=== PATIENT | female | born 1985 | race Caucasian/White ===

== ENCOUNTER 2018-09-26 17:46 | Emergency (ER) | payer BC ==
[2018-09-26 18:18] VITALS: BP 102/69; PULSE 112; TEMP 98.7; BMI 24.5
[2018-09-26] MEDS ORDERED: SODIUM CHLORIDE 1,000 ML IV STA ×2 (18:30→18:58)
[2018-09-26] MEDS ORDERED: METOCLOPRAMIDE HCL INJECTION 10 MG/2 ML VIAL IVPUSH ONE (18:52)
[2018-09-26] MEDS ORDERED: METOCLOPRAMIDE HCL INJECTION 10 MG/2 ML VIAL ONE (18:52)
--- NOTE | 2018-09-26 19:09 | PDOC ---
Documentation entered by Christophe Lindsey SCRIBE, acting as scribe for Rod Alexander MD. Rod Alexander MD: This documentation has been prepared by the Rosalia cano Xhesika, SCRIBE, under my direction and personally reviewed by me in its entirety. I confirm that the documentation accurately reflects all work, treatment, procedures, and medical decision making performed by me. History of Present Illness - General Chief Complaint: Nausea/Vomiting Stated Complaint: NAUSEA Time Seen by Provider: 09/26/18 18:05 History Source: Patient Exam Limitations: No Limitations - History of Present Illness Initial Comments: 09/26/18 18:54 The patient is a 32 year old female, 18 weeks , , with no significant past medical history who presents to the emergency department with nausea, vomiting and diarrhea since last night. The patient states she has been vomiting and having loose stools every hour since 8pm last night with the most recent episode at 3pm today. Pt denies abdominal pain. Denies F/C. Denies any vaginal discharge/bleeding/dysuria. Denies any similar episodes with previous or this one. 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 The patient states she called her pharmaceutical worker, Dr. Garibay, and was told to come to the ED for fluids. The patient denies any recent travels. The patient denies chest pain, shortness of breath, headache or dizziness. The patient denies fever, chills, or constipation. The patient denies dysuria, frequency, urgency or hematuria. Allergies: NKDA Past surgical history: None reported. Social History: None reported HANDYMAN: Dr. Garibay [facility] Past History - Past Medical History Allergies/Adverse Reactions: Allergies Allergy/AdvReac Type Severity Reaction Status Date / Time No Known Allergies Allergy Verified 09/26/18 17:47 Home Medications: Ambulatory Orders NK [No Known Home Medication] 09/26/18 COPD: No - Immunization History Immunization Up to Date: Yes - Suicide/Smoking/Psychosocial Hx Smoking History: Never smoked Have you smoked in the past 12 months: No Hx Alcohol Use: No Drug/Substance Use Hx: No Review of Systems - Review of Systems Comments:: 09/26/18 18:55 "GENERAL/CONSTITUTIONAL: No fever or chills. No weakness. HEAD, EYES, EARS, NOSE AND THROAT: No change in vision. No ear pain or discharge. No sore throat. CARDIOVASCULAR: No chest pain, no shortness of breath, no loss of consciousness RESPIRATORY: No cough, wheezing, or hemoptysis. GASTROINTESTINAL: (+) nausea, vomiting, diarrhea. No constipation. GENITOURINARY: No dysuria, frequency, or change in urination. MUSCULOSKELETAL: No joint or muscle swelling or pain. No neck or back pain. SKIN: No rash NEUROLOGIC: No vertigo, no change in strength/sensation. ENDOCRINE: No increased thirst. No abnormal weight change. HEMATOLOGIC/LYMPHATIC: No anemia, easy bleeding, or history of blood clots. ALLERGIC/IMMUNOLOGIC: No hives or skin allergy. *Physical Exam - Vital Signs Last Vital Signs Temp Pulse Resp BP Pulse Ox 98.7 F 112 H 20 102/69 97 09/26/18 17:47 09/26/18 17:47 09/26/18 17:47 09/26/18 17:47 09/26/18 17:47 - Physical Exam Comments: 09/26/18 18:55 "GENERAL: Awake, alert, and fully oriented, in no acute distress. HEAD: No signs of trauma EYES: PERRLA, EOMI, sclera anicteric, conjunctiva clear ENT: Auricles normal inspection, hearing grossly normal, nares patent, oropharynx clear without exudates. Moist mucosa NECK: Nontender, no stepoffs, Normal ROM, supple, no lymphadenopathy, JVD, or masses LUNGS: Breath sounds equal, clear to auscultation bilaterally. No wheezes, and no crackles HEART: Regular rate and rhythm, normal S1 and S2, no murmurs, rubs or gallops ABDOMEN: Soft, nontender, normoactive bowel sounds. No guarding, no rebound. No masses EXTREMITIES: Normal range of motion, no edema. No clubbing or cyanosis. No cords, erythema, or tenderness NEUROLOGICAL: Cranial nerves II through XII intact. 5/5 strength and sensation in all extremities, Normal speech, normal gait, normal cerebellar function SKIN: Warm, Dry, normal turgor, no rashes or lesions noted. ED Treatment Course - LABORATORY CBC & Chemistry Diagram: 09/26/18 18:31 09/26/18 18:48 Medical Decision Making - Medical Decision Making 09/26/18 18:55 32 F @ 18 weeks , presenting with N+V+D. Likely viral gastroenteritis. Pt has never had hyperemesis with either . Pt with benign abdomen, making raina/appy/colitis/diverticulitis unlikely. - Labs, UA - IVF - PO challenge Pt signed out to oncoming attending at 7pm, pending labs and re-evaluation. *DC/Admit/Observation/Transfer Diagnosis at time of Disposition: Gastroenteritis - Discharge Dispostion Disposition: HOME Condition at time of disposition: Stable - Referrals Referrals: Natalie Mariano MD [Primary Care Provider] - 3 days - Patient Instructions Printed Discharge Instructions: DI for Viral Gastroenteritis -- Adult Additional Instructions: Clear liquids; advance diet cautiously Reglan 10 mg up to twice a day as needed for nausea/vomiting Follow-up with your doctor within the next 2-3 days Return to ER if you have persistent vomiting or develop abdominal pain/fever - Post Discharge Activity - Attestations Physician Attestion: 09/26/18 22:04 I, Dr. Rod Alexander MD, attest that this document has been prepared under my direction and personally reviewed by me in its entirety. I further attest, that it accurately reflects all work, treatment, procedures and medical decision -making performed by me.
[2018-09-26 19:26] LABS: BASO % 0.2 % (0-2.0); EOS % 0.1 % (0-4.5); HEMATOCRIT 35.9 % (32.4-45.2); HEMOGLOBIN 12.2 GM/dl (10.7-15.3); LYMPH % 8.9 % (8-40); MCH 29.9 pg (25.7-33.7); MEAN CELL VOLUME 87.8 fl (80-96); MEAN PLT VOLUME 8.5 fl (7.5-11.1); MONO % 6.8 % (3.8-10.2); PLATELET COUNT 271 K/MM3 (134-434); RBC 4.09 M/mm3 (3.60-5.2); RDW 12.9 % (11.6-15.6)
[2018-09-26 19:38] LABS: ALBUMIN 3.3 g/dl (3.4-5.0); ALK PHOS 65 U/L (45-117); ANION GAP 12 MMOL/L (8-16); BILIRUBIN,TOTAL 0.8 mg/dl (0.2-1); BLOOD UREA NITROGEN 9 mg/dl (7-18); CALCIUM 8.6 mg/dl (8.5-10); CHLORIDE 106 mmol/L (98-107); CO2 19 mmol/L (21-32); CREATININE 0.4 mg/dl (0.55-1.3); GLUCOSE,RANDOM 85 mg/dl (74-106); POTASSIUM 3.3 mmol/L (3.5-5.1); SGOT/AST 17 U/L (15-37); SGPT/ALT 11 U/L (13-61); SODIUM 137 mmol/L (136-145); TOT PROT 6.3 g/dl (6.4-8.2)
--- NOTE | 2018-09-26 19:48 | PDOC ---
*Physical Exam - Vital Signs Last Vital Signs Temp Pulse Resp BP Pulse Ox 98.7 F 112 H 20 102/69 97 09/26/18 17:47 09/26/18 17:47 09/26/18 17:47 09/26/18 17:47 09/26/18 17:47 ED Treatment Course - LABORATORY CBC & Chemistry Diagram: 09/26/18 18:31 09/26/18 18:48 - ADDITIONAL ORDERS Additional order review: Laboratory Results 09/26/18 18:48 Sodium 137 Potassium 3.3 L Chloride 106 Carbon Dioxide 19 L Anion Gap 12 BUN 9 Creatinine 0.4 L Creat Clearance w eGFR 184.98 Random Glucose 85 Calcium 8.6 Total Bilirubin 0.8 AST 17 ALT 11 L Alkaline Phosphatase 65 Total Protein 6.3 L Albumin 3.3 L 09/26/18 18:31 RBC 4.09 MCV 87.8 MCHC 34.0 RDW 12.9 MPV 8.5 Neutrophils % 84.0 H Lymphocytes % 8.9 Monocytes % 6.8 Eosinophils % 0.1 Basophils % 0.2 - Medications Given in the ED: ED Medications Discontinued Medications Generic Name Dose Route Start Last Admin Trade Name Freq PRN Reason Stop Dose Admin Sodium Chloride 1,000 mls @ 1,000 mls/hr 09/26/18 18:30 09/26/18 18:49 Normal Saline - IV 09/26/18 19:29 1,000 mls/hr ASDIR STA Administration Metoclopramide HCl 10 mg 09/26/18 18:52 09/26/18 18:58 Reglan Injection - IVPUSH 09/26/18 18:53 10 mg ONCE ONE Administration Progress Note - Progress Note Progress Note: Care of this patient received from . Patient received 1 L normal saline IV and 10 mg Reglan IV for nausea/vomiting. Laboratory evaluation is essentially normal except for minimal hypokalemia (3.3 mmol/liter). Patient reports that she is feeling markedly better. Patient was given 8 ounces of water which she consumed without subsequent nausea /vomiting or abdominal discomfort. Patient was discharged with instructions to continue clear liquids and advance diet cautiously. She asked for a small prescription of Reglan, in case she has recurrent nausea. Reglan 10 mg by mouth to be used up to 3 times a day for nausea sent to her pharmacy. She should follow-up with her primary care physician within the next 2-3 days. If she has persistent, severe vomiting or severe abdominal pain/fever, she should return to the ER *DC/Admit/Observation/Transfer Diagnosis at time of Disposition: Gastroenteritis - Discharge Dispostion Disposition: HOME Condition at time of disposition: Stable - Referrals Referrals: Natalie Mariano MD [Primary Care Provider] - 3 days - Patient Instructions Printed Discharge Instructions: DI for Viral Gastroenteritis -- Adult Additional Instructions: Clear liquids; advance diet cautiously Reglan 10 mg up to twice a day as needed for nausea/vomiting Follow-up with your doctor within the next 2-3 days Return to ER if you have persistent vomiting or develop abdominal pain/fever - Post Discharge Activity
[2018-09-26 20:33] LABS: EPITHELIAL CELLS MODERATE /hpf; URINE MUCUS 2+
== END 2018-09-26 20:43 | disposition home or self-care (01) ==
LOC: SUPCPDRO 17:46 → FER 17:46
PROC: 3E033GC Introduction of Other Therapeutic Substance into Peripheral Vein, Percutaneous Approach (ICD-10-PCS; principal; 2018-09-26)
PROC: 3E0337Z Introduction of Electrolytic and Water Balance Substance into Peripheral Vein, Percutaneous Approach (ICD-10-PCS; 2018-09-26)
DX: K52.9 Noninfective gastroenteritis and colitis, unspecified (principal); O26.891 Other specified pregnancy related conditions, first trimester; Z3A.18 18 weeks gestation of pregnancy
CPT/HCPCS: 36415; 80053; 81003; 81015; 85025; 87086; 87804; 99281-25; J7030